=== PATIENT | male | born 1960 | race Caucasian/White ===

== ENCOUNTER 2018-09-30 07:57 | Inpatient (IN) | payer OTHER ==
[~2018-09-30] VITALS: Ht 167.6 cm; Wt 79.5 kg
[2018-09-30] VITALS (27 sets, daily range): BP systolic 97–148; BP diastolic 59–91; PULSE 80–131; RESP 10–23; Ht 167.6 cm; Wt 79.5 kg
[~2018-09-30 07:57] MED LIST: CEFAZOLIN 2 GM/50 ML (PMX) 50 ML IVPB SCH; LACTATED RINGER'S 1L BAG IV SCH; SEVOFLURANE 15 MIN ONE
[2018-09-30] MEDS ORDERED: PROPOFOL 20 ML ONE (09:08)
[2018-09-30] MEDS ORDERED: ROCURONIUM 50 MG INJ ONE ×2 (09:08→12:51)
[2018-09-30] MEDS ORDERED: ONDANSETRON 4 MG INJ ONE (09:09)
[2018-09-30] MEDS ORDERED: CEFAZOLIN 1 GM INJ ONE (09:09)
[2018-09-30] MEDS ORDERED: DEXAMETHASONE 4 MG/ML 5 ML INJ ONE (09:09)
[2018-09-30] MEDS ORDERED: MIDAZOLAM 1 MG/ML 2 ML INJ ONE (09:09)
[2018-09-30] MEDS ORDERED: METOCLOPRAMIDE 10 MG INJ ONE (09:09)
--- NOTE | 2018-09-30 09:17 | PREAC ---
Date/Time of Note Date/Time of Note DATE: 09/30/18 TIME: 09:16 Anesthesia Eval and Record Evaluation Time Pre-Procedure Interview DATE: 09/30/18 TIME: 09:16 Age 58 Sex male NPO: 8 hrs Preoperative diagnosis Cervical Spine Stenosis Planned procedure Anterior Cervical Stenosis Past Medical History Past Medical History: None Surgery & Anesthesia Issues No known issue Meds Anticoagulation: No Beta Merlene within 24 hr: No Reason Beta Merlene not given: Pt. not on B-Merlene Current Medications Cefazolin Sodium/ Dextrose 50 ml @ 100 mls/hr ONCE IVPB ; Start 09/30/18 at 06:00; Stop 09/30/18 at 18:00 Lactated Ringer's (Lr) 1,000 ml ONCE IV ; Start 09/30/18 at 06:00; Stop 09/30/18 at 18:00 Meds reviewed: Yes Allergies Coded Allergies: No Known Allergy (Unverified , 09/29/18) Allergies Reviewed: Yes Labs/Studies Labs Reviewed: Reviewed by anesthesiologist test: N/A Studies: ECG (n/a), CXR (n/a) Pre-procedure Exam Last vitals Vital Signs Date Temp Pulse Resp B/P (MAP) Pulse Ox O2 O2 Flow FiO2 Time Delivery Rate 09/30/18 97.6 80 16 113/76 99 Room Air 09:02 (88) Airway: Adequate mouth opening, Adequate thyromental dist Mallampati: Mallampati II Teeth: Normal Lung: Normal Heart: Normal ASA Physical Status ASA physical status: 2 Emergency: None Planned Anesthetic General/MAC: ETT Planned Pain Management Parenteral pain med Pre-operative Attestations Prior to commencing anesthesia and surgery, the patient was re-evaluated, there was verification of: *The patient's identity *The results of appropriate recent lab work and preoperative vital signs *The above evaluation not changing prior to induction *Anesthetic plan, risk benefits, alternative and complications discussed with patient/family; questions answered; patient/family understands, accepts and wishes to proceed. ILIANA VILLALBA MD Sep 30, 2018 09:17
[2018-09-30] MEDS ORDERED: OXYCODONE/ACETAMINOPHEN (5/325) TAB PO PRN ×2 (09:30)
[2018-09-30] MEDS ORDERED: METOCLOPRAMIDE 10 MG INJ IV PRN (09:30)
[2018-09-30] MEDS ORDERED: HYDROmorphONE 1 MG/5 ML IV SYRINGE IV PRN ×2 (09:30)
[2018-09-30] MEDS ORDERED: LABETALOL HCL 20MG INJ IV PRN (09:30)
[2018-09-30] MEDS ORDERED: MEPERIDINE 25 MG INJ IV PRN (09:30)
[2018-09-30] MEDS ORDERED: ONDANSETRON 4 MG INJ IV PRN ×2 (09:30→10:30)
[2018-09-30] MEDS ORDERED: FENTAnyl 50 MCG/ML VIAL IV PRN ×3 (09:30)
[2018-09-30] MEDS ORDERED: EPHEDrine 25 MG/5 ML SYG IV PRN (09:30)
[2018-09-30] MEDS ORDERED: DIPHENHYDRAMINE 50 MG INJ IV PRN ×2 (09:30→10:30)
--- NOTE | 2018-09-30 10:21 | HPN ---
Date/Time of Note Date/Time of Note DATE: 09/30/18 TIME: 10:20 Interval H&P Admission Note Pt. seen H&P reviewed: No system changes MELODY CURTIS PA-C Sep 30, 2018 10:21
[2018-09-30] MEDS ORDERED: NALOXONE (0.4 MG/ML) INJ IV PRN (10:30)
[2018-09-30] MEDS ORDERED: HYDROmorphONE 0.5 MG/0.5 ML SYG IV PRN (10:30)
[2018-09-30] MEDS ORDERED: BISACODYL 10 MG SUPP PR PRN (10:30)
[2018-09-30] MEDS ORDERED: DIPHENHYDRAMINE 25 MG CAP PO PRN (10:30)
[2018-09-30] MEDS ORDERED: HYDROCODONE/APAP (10/325) TAB PO PRN (10:30)
[2018-09-30] MEDS ORDERED: AL HYDROX/MG HYDROX/SIMETH 30 ML CUP PO PRN (10:30)
[2018-09-30] MEDS ORDERED: ACETAMINOPHEN 325 MG TAB PO PRN (10:30)
[2018-09-30] MEDS ORDERED: THROMBIN 5000 UNIT VIAL ONE (10:35)
[2018-09-30] MEDS ORDERED: POLYMYXIN/BACITRACIN 1L IRRIG ONE (10:35)
[2018-09-30] MEDS ORDERED: BUPIVACAINE 0.25%/EPI (SDV) 30 ML INJ ONE (10:35)
[2018-09-30] MEDS ORDERED: GELATIN SIZE 100 SPONGE ONE (10:35)
[2018-09-30] MEDS ORDERED: SUGAMMADEX SODIUM 200 MG/2 ML VIAL IV ONE (13:52)
--- NOTE | 2018-09-30 14:12 | PAC ---
Date/Time of Note Date/Time of Note DATE: 09/30/18 TIME: 14:12 Post-Anesthesia Notes Post-Anesthesia Note Last documented vital signs Vital Signs Date Temp Pulse Resp B/P (MAP) Pulse Ox O2 O2 Flow FiO2 Time Delivery Rate 09/30/18 97.6 80 16 113/76 99 Room Air 14:02 (88) Activity: WNL Respiratory function: WNL Cardiovascular function: WNL Mental status: Baseline Pain reasonably controlled: Yes Hydration appropriate: Yes Nausea/Vomiting absent: Yes ILIANA VILLALBA MD Sep 30, 2018 14:12
--- NOTE | 2018-09-30 14:16 | SIPON ---
Date/Time of Note Date/Time of Note DATE: 09/30/18 TIME: 14:15 Operative Report Preoperative Diagnosis Cervical disc disease Postoperative Diagnosis Cervical disc disease Operation/Procedure Performed Cervical fusion Surgeon see signature line advertising assistant Kathy Coffey Anesthesia: general Estimated blood loss: 10 - 50 ml's Transfusion Required none Specimen Disc Grafts/Implants Plate and cage Complications none TIFFANY RASCON MD Sep 30, 2018 14:16
[2018-09-30] MEDS ORDERED: HYDROmorphONE 1 MG/5 ML IV SYRINGE IV ONE (14:24)
[2018-09-30] MEDS: HYDROmorphONE 1 MG/5 ML IV SYRINGE IV PRN ×2 (14:28→14:36)
--- NOTE | 2018-09-30 14:35 | CONS ---
Assessment/Plan Assessment/Plan Assessment/Plan (Daily) Med consult dictated post op cx spine surgery now in recovery and stable without signif PMH Consultation Date/Type/Reason Admit Date/Time Sep 30, 2018 at 07:57 Date/Time of Note DATE: 09/30/18 TIME: 14:35 Past Medical History Medications Current Medications Cefazolin Sodium/ Dextrose 50 ml @ 100 mls/hr ONCE IVPB ; Start 09/30/18 at 06:00; Stop 09/30/18 at 18:00 Lactated Ringer's (Lr) 1,000 ml ONCE IV ; Start 09/30/18 at 06:00; Stop 09/30/18 at 18:00 Hydromorphone HCl (Dilaudid) 0.2 mg PACU PRN IV MILD PAIN 1-3; Start 09/30/18 at 09:30; Stop 09/30/18 at 20:00 Hydromorphone HCl (Dilaudid) 0.4 mg PACU PRN IV MOD PAIN 4-6 Last administered on 09/30/18at 14:28; Admin Dose 0.4 MG; Start 09/30/18 at 09:30; Stop 09/30/18 at 20:00 Hydromorphone HCl (Dilaudid) 0.6 mg PACU PRN IV SEVERE PAIN 7-10; Start 09/30/18 at 09:30; Stop 09/30/18 at 20:00 Fentanyl (Sublimaze) 25 mcg PACU ORDER PRN IV MILD PAIN 1-3; Start 09/30/18 at 09:30; Stop 09/30/18 at 20:00 Fentanyl (Sublimaze) 50 mcg PACU ORDER PRN IV MOD PAIN 4-6; Start 09/30/18 at 09:30; Stop 09/30/18 at 20:00 Fentanyl (Sublimaze) 75 mcg PACU ORDER PRN IV SEVERE PAIN 7-10; Start 09/30/18 at 09:30; Stop 09/30/18 at 20:00 Oxycodone/ Acetaminophen (Percocet (5/ 325)) 1 tab PACU ORDER PRN PO .PAIN 1-5; Start 09/30/18 at 09:30; Stop 09/30/18 at 20:00 Oxycodone/ Acetaminophen (Percocet (5/ 325)) 2 tab PACU ORDER PRN PO .PAIN 6-10; Start 09/30/18 at 09:30; Stop 09/30/18 at 20:00 Ondansetron HCl (Zofran Inj) 4 mg PACU ORDER PRN IV NAUSEA/VOMITING; Start 09/30/18 at 09:30; Stop 09/30/18 at 20:00 Metoclopramide HCl (Reglan) 10 mg PACU ORDER PRN IV NAUSEA/VOMITING; Start 09/30/18 at 09:30; Stop 09/30/18 at 20:00 Labetalol HCl (Labetalol) 5 mg PACU ORDER PRN IV HIGH BLOOD PRESSURE; Start 09/30/18 at 09:30; Stop 09/30/18 at 20:00 Ephedrine Sulfate 5 mg PACU ORDER PRN IV BLOOD PRESSURE SUPPORT; Start 09/30/18 at 09:30; Stop 09/30/18 at 20:00 Meperidine HCl (Demerol) 25 mg PACU ORDER PRN IV .RIGORS; Start 09/30/18 at 09:30; Stop 09/30/18 at 20:00 Diphenhydramine HCl (Benadryl) 25 mg PACU ORDER PRN IV .PRURITUS; Start 09/30/18 at 09:30; Stop 09/30/18 at 20:00 Potassium Chloride/Dextrose/ Sod Cl 1,000 ml @ 100 mls/hr Q10H IV ; Start 09/30/18 at 11:00 Acetaminophen/ Hydrocodone Bitart ([place] (10/325)) 1 tab Q4H PRN PO .PAIN 1-5; Start 09/30/18 at 10:30 Acetaminophen/ Hydrocodone Bitart ([place] (10/325)) 2 tab Q4H PRN PO .PAIN 6-10; Start 09/30/18 at 10:30 Hydromorphone HCl (Dilaudid) 0.2 mg Q1H PRN IV .BREAKTHROUGH PAIN; Start 09/30/18 at 10:30 Cefazolin Sodium 50 ml @ 100 mls/hr Q8H IVPB ; Start 09/30/18 at 14:00; Stop 10/01/18 at 06:29 Ondansetron HCl (Zofran Inj) 4 mg Q6H PRN IV NAUSEA/VOMITING; Start 09/30/18 at 10:30 Bisacodyl (Dulcolax Supp) 10 mg DAILY PRN MD .CONSTIPATION; Start 09/30/18 at 10:30 Docusate Sodium (Colace) 100 mg BID PO ; Start 09/30/18 at 21:00 Al Hydrox/Mg Hydrox/Simethicone (Mag-Al Plus) 15 ml Q6H PRN PO .CONSTIPATION/DYSPEPSIA; Start 09/30/18 at 10:30 Acetaminophen (Tylenol Tab) 650 mg Q4H PRN PO LINDSAY OR TEMP GREATER THAN 101.3F; Start 09/30/18 at 10:30 Cyclobenzaprine HCl (Flexeril) 10 mg TID PRN PO .MUSCLE SPASMS; Start 09/30/18 at 10:30 Phenol (Cepastat Lozenge) 1 lozenge PRN PRN MT .SORE THROAT; Start 09/30/18 at 10:30 Diphenhydramine HCl (Benadryl) 25 mg Q6H PRN PO .ITCHING; Start 09/30/18 at 10:30 Diphenhydramine HCl (Benadryl) 25 mg Q6H PRN IV .ITCHING; Start 09/30/18 at 10:30 Naloxone HCl (Narcan) 0.2 mg Q2M PRN IV .RR 8 BREATHS/MIN OR LESS; Start 09/30/18 at 10:30 Allergies: Coded Allergies: No Known Allergy (Unverified , 09/29/18) Social History Smoking Status: Never smoker Exam/Review of Systems Exam Vitals Vital Signs Date Temp Pulse Resp B/P (MAP) Pulse Ox O2 O2 Flow FiO2 Time Delivery Rate 09/30/18 98.7 14:13 09/30/18 80 16 113/76 99 Room Air 09:02 (88) Medications Medication Current Medications Cefazolin Sodium/ Dextrose 50 ml @ 100 mls/hr ONCE IVPB ; Start 09/30/18 at 06:00; Stop 09/30/18 at 18:00 Lactated Ringer's (Lr) 1,000 ml ONCE IV ; Start 09/30/18 at 06:00; Stop 09/30/18 at 18:00 Hydromorphone HCl (Dilaudid) 0.2 mg PACU PRN IV MILD PAIN 1-3; Start 09/30/18 at 09:30; Stop 09/30/18 at 20:00 Hydromorphone HCl (Dilaudid) 0.4 mg PACU PRN IV MOD PAIN 4-6 Last administered on 09/30/18at 14:28; Admin Dose 0.4 MG; Start 09/30/18 at 09:30; Stop 09/30/18 at 20:00 Hydromorphone HCl (Dilaudid) 0.6 mg PACU PRN IV SEVERE PAIN 7-10; Start 09/30/18 at 09:30; Stop 09/30/18 at 20:00 Fentanyl (Sublimaze) 25 mcg PACU ORDER PRN IV MILD PAIN 1-3; Start 09/30/18 at 09:30; Stop 09/30/18 at 20:00 Fentanyl (Sublimaze) 50 mcg PACU ORDER PRN IV MOD PAIN 4-6; Start 09/30/18 at 09:30; Stop 09/30/18 at 20:00 Fentanyl (Sublimaze) 75 mcg PACU ORDER PRN IV SEVERE PAIN 7-10; Start 09/30/18 at 09:30; Stop 09/30/18 at 20:00 Oxycodone/ Acetaminophen (Percocet (5/ 325)) 1 tab PACU ORDER PRN PO .PAIN 1-5; Start 09/30/18 at 09:30; Stop 09/30/18 at 20:00 Oxycodone/ Acetaminophen (Percocet (5/ 325)) 2 tab PACU ORDER PRN PO .PAIN 6-10; Start 09/30/18 at 09:30; Stop 09/30/18 at 20:00 Ondansetron HCl (Zofran Inj) 4 mg PACU ORDER PRN IV NAUSEA/VOMITING; Start 09/20 05/10 at 09:30; Stop 09/30/18 at 20:00 Metoclopramide HCl (Reglan) 10 mg PACU ORDER PRN IV NAUSEA/VOMITING; Start 09/30/18 at 09:30; Stop 09/30/18 at 20:00 Labetalol HCl (Labetalol) 5 mg PACU ORDER PRN IV HIGH BLOOD PRESSURE; Start 09/30/18 at 09:30; Stop 09/30/18 at 20:00 Ephedrine Sulfate 5 mg PACU ORDER PRN IV BLOOD PRESSURE SUPPORT; Start 09/30/18 at 09:30; Stop 09/30/18 at 20:00 Meperidine HCl (Demerol) 25 mg PACU ORDER PRN IV .RIGORS; Start 09/30/18 at 09:30; Stop 09/30/18 at 20:00 Diphenhydramine HCl (Benadryl) 25 mg PACU ORDER PRN IV .PRURITUS; Start 09/30/18 at 09:30; Stop 09/30/18 at 20:00 Potassium Chloride/Dextrose/ Sod Cl 1,000 ml @ 100 mls/hr Q10H IV ; Start 09/30/18 at 11:00 Acetaminophen/ Hydrocodone Bitart ([place] (325)) 1 tab Q4H PRN PO .PAIN 1-5; Start 09/30/18 at 10:30 Acetaminophen/ Hydrocodone Bitart ([place] (325)) 2 tab Q4H PRN PO .PAIN 6-10; Start 09/30/18 at 10:30 Hydromorphone HCl (Dilaudid) 0.2 mg Q1H PRN IV .BREAKTHROUGH PAIN; Start 09/30/18 at 10:30 Cefazolin Sodium 50 ml @ 100 mls/hr Q8H IVPB ; Start 09/30/18 at 14:00; Stop 10/01/18 at 06:29 Ondansetron HCl (Zofran Inj) 4 mg Q6H PRN IV NAUSEA/VOMITING; Start 09/30/18 at 10:30 Bisacodyl (Dulcolax Supp) 10 mg DAILY PRN MD .CONSTIPATION; Start 09/30/18 at 10:30 Docusate Sodium (Colace) 100 mg BID PO ; Start 09/30/18 at 21:00 Al Hydrox/Mg Hydrox/Simethicone (Mag-Al Plus) 15 ml Q6H PRN PO .CONSTIPATI ON/DYSPEPSIA; Start 09/30/18 at 10:30 Acetaminophen (Tylenol Tab) 650 mg Q4H PRN PO LINDSAY OR TEMP GREATER THAN 101.3F; Start 09/30/18 at 10:30 Cyclobenzaprine HCl (Flexeril) 10 mg TID PRN PO .MUSCLE SPASMS; Start 09/30/18 at 10:30 Phenol (Cepastat Lozenge) 1 lozenge PRN PRN MT .SORE THROAT; Start 09/30/18 at 10:30 Diphenhydramine HCl (Benadryl) 25 mg Q6H PRN PO .ITCHING; Start 09/30/18 at 10:30 Diphenhydramine HCl (Benadryl) 25 mg Q6H PRN IV .ITCHING; Start 09/30/18 at 10:30 Naloxone HCl (Narcan) 0.2 mg Q2M PRN IV .RR 8 BREATHS/MIN OR LESS; Start 09/30/18 at 10:30 PENELOPE RESENDIZ MD Sep 30, 2018 14:35
[2018-09-30] MEDS: CEFAZOLIN 1 GM/50 ML (PMX) 50 ML IVPB SCH ×2 (14:37→21:01)
--- NOTE | 2018-09-30 16:24 | CONS ---
DATE OF ADMISSION: 09/30/2018 DATE OF CONSULTATION: 09/30/2018 Thank you very much for allowing me to evaluate the above patient who just underwent anterior cervica l diskectomy. HISTORICAL EVENTS: As the chart indicates and you well know, it was initially in July 2017 the alex ent began to complain of left arm pain. He ultimately underwent imaging studies of the cervical spin e and it was felt that his discomfort was related to repetitive movement and nerve compression presen t and because of lack of improvement with conservative therapy, surgery was recommended. Postoperati vely, he notes some discomfort in his neck. He denies cough, wheezing, shortness of breath, nausea, vomiting, abdominal or chest pain. PAST MEDICAL HISTORY: Includes hernia repair and knee arthroscopic surgery. ALLERGIES: NONE. FAMILY HISTORY: Positive for cancer. MEDICATIONS PRIOR TO ADMISSION: Tramadol 50 mg every 6 hours. PHYSICAL EXAMINATION: GENERAL: Og[place] male, in no acute distress. VITAL SIGNS: BP 118/70, pulse 100, respirations were 18. He was afebrile. EYES: Extraocular muscles were full. NOSE, MOUTH, AND THROAT: Normal. NECK: No JVD. LUNGS: Clear. HEART: Rhythm regular. ABDOMEN: Nontender. Liver and spleen not palpable. No masses. EXTREMITIES: No edema. Calves are nontender. NEUROLOGIC: No lateralizing motor weakness. IMPRESSION: 1. Stable postoperative cervical spine surgery. 2. We will evaluate daily for signs and symptoms of thromboembolic disease. Dictated By: PENELOPE RESENDIZ MD MR/NTS Conf#: [id number] DID#: [id number] CC: TIFFANY RASCON MD;*[facility]*
--- NOTE | 2018-09-30 16:27 | OPR ---
DATE OF OPERATION: 09/30/2018 PREOPERATIVE DIAGNOSES: C5 to C6, C6 to C7 cervical disk disease and stenosis with radiculopathy. POSTOPERATIVE DIAGNOSES: C5 to C6, C6 to C7 cervical disk disease and stenosis with radiculopathy. PROCEDURES: 1. Anterior cervical diskectomy and spinal cord decompression at C5 to C6 and C6 to C7. 2. Partial corpectomy of C6 and C7. 3. Anterior cervical fusion at C5 to C6 and C6 to C7. 4. Placement of intervertebral mechanical device at C5 to C6 and C6 to C7. 5. Placement of separate anterior cervical hardware at C5, C6, C7. 6. Use of operative microscope. 7. Use of C-arm fluoroscopy with interpretation without radiologist present. 8. Intraoperative neuromonitoring. 9. Use of allograft. IMPLANTS: 1. Nexxt Matrixx 7 x 14 x 16 mm titanium cage at C5 to C6 and C6 to C7. 2. Biosphere. 3. Neurostructure Transom 30 mm plate with 14 mm screws. PRIMARY SURGEON: Paul Godoy MD SELF PROPELLED HOT MIX ROLLER OPERATOR: Kathy Coffey PA-C NEED FOR ENTERPRISE PROJECT MANAGER: During this spinal surgical procedure, my delinquent tax collection assistant was used to retract and protect the spinal nerves and dural sac. My delinquent tax collection assistant also employed the suction catheters to ev acuate blood from the surgical field to improve visualization of the neural structures. The assistan t was medically necessary to facilitate the completion of the surgery in a safe and expeditious [facility]. [facility] regulations, as well as hospital bylaws, preclude the use of non-licensed [facility] care personnel, such as operating room technicians, to perform these functions. FINDINGS: Neuromonitoring at the start of the case revealed bilateral C5 and C7 amplitude down 20%, left C6 down 20%, right C6 down 30%. At the end of the case, nerve signals returned to normal. Ther e is stenosis at C5 to C6 and C6 to C7. The disk was quite calcified at C6 to C7 at posterior aspect of both levels resulting in stenosis. Given the calcification at C6 to C7, partial corpectomy had t o be done here. ESTIMATED BLOOD LOSS: 30 mL. DRAINS: None. SPECIMENS: C5 to C6 and C6 to C7 disks. COMPLICATIONS OF PROCEDURES: None. ANESTHESIOLOGIST: Arnel Naylor MD TYPE OF ANESTHESIA: General. INDICATIONS FOR PROCEDURE: This is a 58-year-old gentleman with cervical disk disease and radiculopa thy. He failed nonoperative measures; therefore, I recommended that he undergo the above procedure. Preoperatively, we discussed risks, benefits, alternatives. He understood and wished to proceed. DESCRIPTION OF PROCEDURE IN DETAIL: The patient was identified in the preoperative holding area, [facility], taken to the operating room, where he was successfully placed under general anes thesia. Neuromonitoring leads were placed. Sequential compressive devices were applied. Remote int raoperative neuromonitoring was performed by Dr. Crenshaw to include SSEP, MEP and EMG from 11:00 un til 14:10 performed by [employer]. The patient was placed in the operative table in supine pos ition. Neck was prepped and draped in usual sterile fashion. Left-sided neck incision was made. Th e platysma was incised in line with the skin incision. I then identified an interval between the merissa rnocleidomastoid and strap muscles and I identified the anterior spine. I placed a bent spinal needl e into the C6 to C7 disk and took a lateral film to confirm the correct levels. Once this was confir med, I subperiosteally dissected the longus colli musculature. I placed self-retaining retractors. The anesthesiologist deflated and reinflated the endotracheal cuff. Microscope was then brought in. Radical diskectomy was performed at the C5 to C6 level using Kerrison punches and high speed bur as well as curettes. I removed the large posterior osteophytes and I removed the posterior longitudinal ligament. I decompressed the spinal cord and neural foramina bilaterally at this level. I placed v arious trials and chose the appropriate graft height. I took the titanium cage within which I placed allograft and I impacted intervertebral mechanical device into the C5 to C6 level to complete the an terior fusion at this level. I then turned my attention to the C6 to C7 level. Here, the disk was q uite calcified and therefore, I had to use a high-speed bur and performed partial corpectomies of C6 and C7, removing at least 50% of the vertebral bodies at each level. This allowed me to get to the b ack of the disk space while I was able to remove the posterior osteophytes and decompressed the spina l cord and neural foramina bilaterally. Once this was done, I placed various trials and chose the ap propriate graft height. I then took the titanium cage within which I placed allograft and I impacted intervertebral biomechanical device into the C6 to C7 level to complete the anterior fusion at C6 to C7. Of note, I put allograft into each of the titanium cages before impacting them into the disk sp evelio. These cages did not have integral screws and therefore I placed in separate anterior plate span miles from C5 to C6 to C7 with 14 mm screws at each level bilaterally. I then locked down the screws. Once all the hardware was in place, I took AP and lateral images and I was happy with the placement of the hardware and alignment of the spine. At this point, all nerve signals returned to normal. T he wound was irrigated. Retractors were removed. The wound was dry and therefore, I elected not to place a drain. I then closed the wound in layers, closing deep platysma with 2-0 Vicryl stitch and s ubcutaneous tissue with a 3-0 Vicryl stitch. Dermabond was then applied. The patient was awakened f rom anesthesia and taken to the recovery room in stable condition. Lap, sponge and instrument counts were correct x2. There were no apparent complications during the procedure. The patient will be admitted to the [facility] for routine postoperative care to include pain co ntrol, neurovascular checks, antibiotics and physical therapy. Dictated By: PAUL GODOY MD BB/DEBI Conf#: [id number] DID#: [id number] CC: PENELOPE RESENDIZ MD;*[facility]*
[2018-09-30] MEDS: D5W-0.45 NACL + KCL 20 MEQ 1,000 ML IV SCH ×2 (17:41→21:00)
[2018-09-30] MEDS: HYDROCODONE/APAP (10/325) TAB PO PRN (18:44)
[2018-09-30] MEDS: DOCUSATE SODIUM 100 MG CAP PO SCH (21:00)
[2018-10-01 00:11] VITALS: BP 120/70; PULSE 95; RESP 18
[2018-10-01] MEDS: CYCLOBENZAPRINE 10 MG TAB PO PRN ×2 (00:19→07:25)
[2018-10-01] MEDS: HYDROCODONE/APAP (10/325) TAB PO PRN ×3 (00:19→12:18)
[2018-10-01 04:30] VITALS: BP 103/60; PULSE 79; RESP 18
[2018-10-01] MEDS: CEFAZOLIN 1 GM/50 ML (PMX) 50 ML IVPB SCH (05:32)
[2018-10-01] MEDS: D5W-0.45 NACL + KCL 20 MEQ 1,000 ML IV SCH (07:00)
[2018-10-01 07:54] VITALS: BP 110/68; PULSE 70; RESP 18
[2018-10-01] MEDS: DOCUSATE SODIUM 100 MG CAP PO SCH (08:16)
--- NOTE | 2018-10-01 08:19 | CONS ---
Assessment/Plan Assessment/Plan Assessment/Plan (Daily) 1. Doing well post op cx spine surgery 2. He has a chronic "tic" right side of face, received Botox prior 3. Hx urinary retention with failed "procedure" to repair, will ck post void bladder residual 4. Labs rev 5. Cont PT Consultation Date/Type/Reason Admit Date/Time Sep 30, 2018 at 07:57 Initial Consult Date Date/Time of Note DATE: 10/01/18 TIME: 08:16 Detailed Summary Respiratory: cough (mild that is not productive) Cardiovascular: No chest pain Gastrointestinal: other (swallowing is easier) Genitourinary: other (mild frequency) Musculoskeletal: neck pain (is less) Exam/Review of Systems Exam Vitals Vital Signs Date Temp Pulse Resp B/P (MAP) Pulse Ox O2 O2 Flow FiO2 Time Delivery Rate 10/01/18 98.5 70 18 110/68 92 07:54 (82) 09/30/18 Room Air 18:00 Intake and Output 09/30/18 09/30/18 10/01/18 1515:00 23:00 07:00 IntakeIntake Total 1300 ml 940 ml 750 ml OutputOutput Total 60 ml 800 ml 400 ml BalanceBalance 1240 ml 140 ml 350 ml Neck: other (incision looks fine); No jvd Respiratory: clear to auscultation Cardiovascular: regular rate and rhythm Gastrointestinal: soft Neurological: other (twitiching right side of face) Results Result Diagram: 10/01/18 0443 10/01/18 0443 Results 24hrs Laboratory Tests Test 10/01/18 04:43 10/01/18 06:59 White Blood Count 11.4 H Red Blood Count 3.93 L Hemoglobin 12.5 L Hematocrit 36.1 L Mean Corpuscular Volume 91.9 Mean Corpuscular Hemoglobin 31.8 Mean Corpuscular Hemoglobin Concent 34.6 Red Cell Distribution Width 11.7 Platelet Count 232 Mean Platelet Volume 11.0 H Immature Granulocytes % 0.300 Neutrophils % 75.9 Lymphocytes % 16.5 Monocytes % 7.1 Eosinophils % 0.0 Basophils % 0.2 Nucleated Red Blood Cells % 0.0 Immature Granulocytes # 0.030 Neutrophils # 8.7 H Lymphocytes # 1.9 Monocytes # 0.8 Eosinophils # 0.0 Basophils # 0.0 Nucleated Red Blood Cells # 0.0 Sodium Level 141 Potassium Level 4.2 Chloride Level 106 Carbon Dioxide Level 29 Anion Gap 6 Blood Urea Nitrogen 15 Creatinine 0.95 Est Glomerular Filtrat Rate mL/min > 60 Glucose Level 117 Calcium Level 8.7 Magnesium Level 2.1 Lab Scanned Report REFERENCE LAB Medications Medication Current Medications Potassium Chloride/Dextrose/ Sod Cl 1,000 ml @ 100 mls/hr Q10H IV Last administered on 09/30/18at 17:41; Admin Dose 100 MLS/HR; Start 09/30/18 at 11:00 Acetaminophen/ Hydrocodone Bitart ([place] (10/325)) 1 tab Q4H PRN PO .PAIN 1-5; Start 09/30/18 at 10:30 Acetaminophen/ Hydrocodone Bitart ([place] (10/325)) 2 tab Q4H PRN PO .PAIN 6-10 Last administered on 10/01/18at 06:01; Admin Dose 2 TAB; Start 09/30/18 at 10:30 Hydromorphone HCl (Dilaudid) 0.2 mg Q1H PRN IV .BREAKTHROUGH PAIN Last administered on 09/30/18at 17:45; Admin Dose 0.2 MG; Start 09/30/18 at 10:30 Ondansetron HCl (Zofran Inj) 4 mg Q6H PRN IV NAUSEA/VOMITING; Start 09/30/18 at 10:30 Bisacodyl (Dulcolax Supp) 10 mg DAILY PRN [place] .CONSTIPATION; Start 09/30/18 at 10:30 Docusate Sodium (Colace) 100 mg BID PO Last administered on 09/30/18at 21:00; Admin Dose 100 MG; Start 09/30/18 at 21:00 Al Hydrox/Mg Hydrox/Simethicone (Mag-Al Plus) 15 ml Q6H PRN PO .CONSTIPATION/DYSPEPSIA; Start 09/30/18 at 10:30 Acetaminophen (Tylenol Tab) 650 mg Q4H PRN PO LINDSAY OR TEMP GREATER THAN 101.3F; Start 09/30/18 at 10:30 Cyclobenzaprine HCl (Flexeril) 10 mg TID PRN PO .MUSCLE SPASMS Last administered on 10/01/18at 07:25; Admin Dose 10 MG; Start 09/30/18 at 10:30 Phenol (Cepastat Lozenge) 1 lozenge PRN PRN MT .SORE THROAT; Start 09/30/18 at 10:30 Diphenhydramine HCl (Benadryl) 25 mg Q6H PRN PO .ITCHING; Start 09/30/18 at 10:30 Diphenhydramine HCl (Benadryl) 25 mg Q6H PRN IV .ITCHING; Start 09/30/18 at 10:30 Naloxone HCl (Narcan) 0.2 mg Q2M PRN IV .RR 8 BREATHS/MIN OR LESS; Start 09/30/18 at 10:30 PENELOPE RESENDIZ MD Oct 01, 2018 08:19
[2018-10-01] MEDS: CEPASTAT LOZENGE MT PRN ×2 (12:15→14:53)
--- NOTE | 2018-10-02 08:14 | DS ---
Date/Time of Note Date/Time of Note DATE: 10/02/18 TIME: 08:13 Discharge Summary Admission/Discharge Info Admit Date/Time Sep 30, 2018 at 07:57 Discharge Date/Time Oct 01, 2018 at 15:30 Discharge Diagnosis Cervical fusion Patient Condition: Good Procedures Cervical fusion Hospital Course Patient was [facility] after undergoing a cervical fusion. His postoperative course was uncomplicated. By postoperative day 1 he was deemed stable for discharge with follow-up arranged with the undersigned Home Meds No Active Prescriptions or Reported Meds Primary Care Provider Not On Staff Doctor TIFFANY RASCON MD Oct 02, 2018 08:14
== END 2018-10-01 15:30 | disposition home or self-care (01) | DRG 473 ==
LOC: REC 07:57 → MS1 16:03
PROVIDERS: ADMIT Specialist; ATTEND Specialist
PROC: 0RT30ZZ Resection of Cervical Vertebral Disc, Open Approach (ICD-10-PCS; 2018-09-30)
PROC: 0RG20A0 Fusion of 2 or more Cervical Vertebral Joints with Interbody Fusion Device, Anterior Approach, Anterior Column, Open Approach (ICD-10-PCS; principal; 2018-09-30 10:30)
DX: M48.02 Spinal stenosis, cervical region (principal); M54.12 Radiculopathy, cervical region
CPT/HCPCS: 72050; 80048; 83735; 85025; 86850; 86900; 86901; 88304; 97116; 97161; C1713; J0690; J1100; J1170; J1200; J2250; J2405; J2765; J3010; J3480